=== PATIENT | female | born 1975 | race Caucasian/White ===

== ENCOUNTER 2018-09-26 13:37 | Emergency (ER) | payer OTHER | END 2018-09-26 14:27 | disposition left against medical advice (07) | LOC: ED 13:37 | DX: Z53.21 Procedure and treatment not carried out due to patient leaving prior to being seen by health care provider (principal) ==

== ENCOUNTER 2018-09-26 14:50 | Inpatient (IN) | payer OTHER ==
[~2018-09-26] VITALS: Ht 160 cm; Wt 58.5 kg
[2018-09-26 15:54] LABS: BASOPHIL % 0.4 % (0-2); PLATELET COUNT 208 x10^3mcL (130-400); RED CELL DISTRIBUTION WIDTH 14.3 % (11.5-14.5)
[2018-09-26 16:00] LABS: CARBON DIOXIDE 25.4 mmol/L (21-32); CHLORIDE SERUM 105 mmol/L (98-107); CREATININE SERUM 0.6 mg/dL (0.6-1.0); GFR1 > 60 mL/min; GLUCOSE SERUM 95 mg/dL (74-106); POTASSIUM SERUM 3.6 mmol/L (3.5-5.1); SODIUM SERUM 137 mmol/L (136-145)
[2018-09-26 16:05] LABS: ALKALINE PHOSPHATASE 52 U/L (46-116); ALT/SGPT 18 U/L (14-59); AST/SGOT 16 U/L (15-37); BILIRUBIN TOTAL 0.7 mg/dL (0.20-1.00); TOTAL PROTEIN, SERUM 6.7 g/dL (6.4-8.2)
[2018-09-26 16:06] LABS: ALBUMIN 3.2 g/dL (3.4-5.0)
[2018-09-26 18:44] VITALS: BP 136/76
[2018-09-26 20:40] VITALS: BP 136/79
[2018-09-27 06:50] LABS: PLATELET COUNT 195 x10^3mcL (130-400)
[2018-09-27 06:56] LABS: CARBON DIOXIDE 27.4 mmol/L (21-32); CHLORIDE SERUM 104 mmol/L (98-107); CREATININE SERUM 0.6 mg/dL (0.6-1.0); GFR1 > 60 mL/min; GLUCOSE SERUM 104 mg/dL (74-106); POTASSIUM SERUM 3.5 mmol/L (3.5-5.1); SODIUM SERUM 138 mmol/L (136-145)
[2018-09-27 07:26] LABS: RED CELL DISTRIBUTION WIDTH 14.6 % (11.5-14.5)
[2018-09-27 09:30] VITALS: BP 125/78
[2018-09-27 15:20] VITALS: BP 130/77
[2018-09-27 15:57] VITALS: Ht 160 cm; Wt 58.5 kg
[2018-09-27 16:35] VITALS: BP 143/83
[2018-09-27 21:03] VITALS: BP 127/70
[2018-09-28 06:16] VITALS: BP 105/56
[2018-09-28 08:19] VITALS: BP 116/64
[2018-09-28 11:51] VITALS: BP 119/60
[2018-09-28 13:17] VITALS: BP 119/60
[2018-09-28] MEDS ORDERED: LIDOCAINE AND P1 CRE TOP (13:36)
[2018-09-28] MEDS ORDERED: NORCO1 TA2 PO (13:37)
== END 2018-09-28 14:10 | disposition home or self-care (01) | DRG 226 ==
LOC: ED 14:50 → MU 17:38
PROVIDERS: Emergency Medicine; Surgery; ADMIT Internal Medicine Pulmonary Disease
PROC: 06BY0ZC Excision of Hemorrhoidal Plexus, Open Approach (ICD-10-PCS; principal; 2018-09-27 12:30)
DX: K64.8 Other hemorrhoids (principal); K52.1 Toxic gastroenteritis and colitis; F17.210 Nicotine dependence, cigarettes, uncomplicated; K64.5 Perianal venous thrombosis; K62.5 Hemorrhage of anus and rectum; T47.4X5A Adverse effect of other laxatives, initial encounter; Y92.89 Other specified places as the place of occurrence of the external cause
CPT/HCPCS: J0690; J0694; J1170; J2250; J2270; J2405; J3010; J3490; J7030

== ENCOUNTER 2020-03-21 21:40 | Emergency (ER) | payer OTHER ==
[~2020-03-21] VITALS: Ht 154.9 cm; Wt 59.0 kg
[~2020-03-21 21:40] MED LIST: LIDOCAINE AND P1 CRE TOP; NORCO1 TA2 PO
[2020-03-21 21:49] VITALS: Ht 154.9 cm; Wt 59.0 kg
[2020-03-21 22:59] VITALS: BP 107/65
== END 2020-03-21 22:59 | disposition home or self-care (01) ==
LOC: ED 21:40
DX: S67.192A Crushing injury of right middle finger, initial encounter (principal); S67.194A Crushing injury of right ring finger, initial encounter; W23.0XXA Caught, crushed, jammed, or pinched between moving objects, initial encounter; Y93.89 Activity, other specified; Y92.89 Other specified places as the place of occurrence of the external cause; Y99.8 Other external cause status
CPT/HCPCS: Q0092

== ENCOUNTER 2020-04-25 22:23 | Emergency (ER) | payer OTHER ==
[~2020-04-25] VITALS: Ht 157.5 cm; Wt 57.2 kg
[2020-04-25 22:38] VITALS: Ht 157.5 cm; Wt 57.2 kg
[2020-04-25 23:39] LABS: BASOPHIL % 0.4 % (0-2); PLATELET COUNT 283 x10^3mcL (130-400)
[2020-04-25 23:40] LABS: UA SPECIFIC GRAVITY 1.025 (1.005-1.035); microscopic required? YES; urine erythrocyte 2+ (NEGATIVE)
[2020-04-25 23:41] LABS: RED CELL DISTRIBUTION WIDTH 15.7 % (11.5-14.5)
[2020-04-25 23:53] LABS: CALCIUM 8.7 mg/dL (8.5-10.1); CARBON DIOXIDE 28.8 mmol/L (21-32); CHLORIDE SERUM 102 mmol/L (98-107); CREATININE SERUM 0.7 mg/dL (0.6-1.0); GFR1 > 60 mL/min; GLUCOSE SERUM 97 mg/dL (74-106); POTASSIUM SERUM 3.6 mmol/L (3.5-5.1); SODIUM SERUM 140 mmol/L (136-145)
[2020-04-26 00:06] LABS: ALKALINE PHOSPHATASE 79 U/L (46-116); ALT/SGPT 20 U/L (14-59); AST/SGOT 20 U/L (15-37); BILIRUBIN TOTAL 0.35 mg/dL (0.20-1.00); LIPASE 156 IU/L (73-393); TOTAL PROTEIN, SERUM 7.2 g/dL (6.4-8.2)
[2020-04-26 00:09] LABS: ALBUMIN 3.2 g/dL (3.4-5.0)
[2020-04-26 02:16] VITALS: BP 136/73
== END 2020-04-26 01:30 | disposition home or self-care (01) ==
LOC: ED 22:23
PROVIDERS: Emergency Medicine
DX: N12 Tubulo-interstitial nephritis, not specified as acute or chronic (principal)

== ENCOUNTER 2020-06-24 12:11 | Emergency (ER) | payer OTHER ==
[~2020-06-24] VITALS: Ht 160 cm; Wt 56.7 kg
[2020-06-24 12:20] VITALS: Ht 160 cm; Wt 56.7 kg
[2020-06-24 15:12] VITALS: BP 122/74
== END 2020-06-24 16:40 | disposition home or self-care (01) ==
LOC: ED 12:11
DX: N39.0 Urinary tract infection, site not specified (principal); N73.9 Female pelvic inflammatory disease, unspecified; Z86.2 Personal history of diseases of the blood and blood-forming organs and certain disorders involving the immune mechanism
CPT/HCPCS: 87491; 87591; J0696